=== PATIENT | male | born 1955 | race Caucasian/White ===

== ENCOUNTER 2018-08-11 11:18 | Emergency (ER) | payer MEDICARE ==
[~2018-08-11] VITALS: Ht 175.3 cm; Wt 119.1 kg
[2018-08-11 11:22] VITALS: TEMP 97.2
[2018-08-11] MEDS ORDERED: FORT1000TA (11:33)
[2018-08-11] MEDS ORDERED: HUMALOG100 U/ML SQ (11:34)
[2018-08-11] MEDS ORDERED: EFFEXOR XR75 MG/CAP PO (11:34)
[2018-08-11] MEDS ORDERED: COREG12.5 MG PO (11:35)
[2018-08-11] MEDS ORDERED: BYDUREON B2 MG/0.85 (11:35)
[2018-08-11] MEDS ORDERED: HYZAAR 25 MG-101 TAB PO (11:35)
[2018-08-11] MEDS ORDERED: PRECOSE 25MG25 MG PO (11:35)
[2018-08-11] MEDS ORDERED: LIPITOR 40MG TA40 MG PO (11:36)
[2018-08-11] MEDS ORDERED: ASPIRIN 81M81 MG/TA2 PO (11:36)
[2018-08-11] MEDS ORDERED: VALTREX1 GM PO (12:06)
[2018-08-11] MEDS ORDERED: PREDNISONE20 MG PO (12:06)
[2018-08-11 12:29] VITALS: BP 160/86; PULSE 80
== END 2018-08-11 12:30 | disposition home or self-care (01) ==
LOC: COL.ER 11:18
DX: G51.0 Bell's palsy (principal); E11.9 Type 2 diabetes mellitus without complications; I10 Essential (primary) hypertension; K21.9 Gastro-esophageal reflux disease without esophagitis; Z79.84 Long term (current) use of oral hypoglycemic drugs; Z79.4 Long term (current) use of insulin; Z79.82 Long term (current) use of aspirin